=== PATIENT | male | born 1975 | race Caucasian/White ===

== ENCOUNTER 2025-04-09 19:49 | Emergency (ER) | payer SELFPAY ==
[~2025-04-09] VITALS: Ht 175.3 cm; Wt 90.0 kg
[2025-04-09 19:54] VITALS: O2SAT 99
[2025-04-09] MEDS: KETOROLAC 15MG/ML VIAL IM ONE (23:40)
[2025-04-09 23:57] LABS: CLARITY URINE CLOUDY (CLEAR); COLOR URINE ORANGE (YELLOW); GLUCOSE URINE NEGATIVE (NEGATIVE); KETONES URINE TRACE (NEGATIVE); LEUKOCYTE ESTERASE URINE 1+ (NEGATIVE); NITRITE URINE NEGATIVE (NEGATIVE); OCCULT BLOOD URINE 3+ (NEGATIVE); PH URINE 5.5 (4.5-8.0); PROTEIN URINE 2+ (NEGATIVE); SPECIFIC GRAVITY URINE 1.038 (1.005-1.030); UROBILINOGEN URINE 1.0 E.U./dL (0.2-1.0)
[2025-04-10] MEDS ORDERED: NAPR-1176 MT (00:32)
[2025-04-10] MEDS ORDERED: TAMS-54 MT (00:32)
[2025-04-10 01:05] LABS: BACTERIA URINE NONE SEEN; RBC URINE 50-100 /hpf (0-2); SQUAMOUS EPITHELIAL CELL URINE NONE SEEN /lpf (RARE/1+)
[2025-04-10 01:12] LABS: BASOPHILS % 0.3 % (0.0-2.0); EOSINOPHILS % 1.2 % (0.0-5.0); HEMATOCRIT. 42.7 % (42.0-52.0); HEMOGLOBIN. 14.3 g/dL (14.0-18.0); LYMPHOCYTES % 22.4 % (20.0-50.0); MEAN PLATELET VOLUME 8.0 fl (7.4-10.4); MONOCYTES % 9.2 % (2.0-8.0); NEUTROPHILS % 66.9 % (40.0-76.0); PLATELET 206 x1000/uL (130-400); RED BLOOD CELL COUNT 4.77 mill/uL (4.7-6.1); RED CELL DISTRIBUTION WIDTH 13.4 % (11.6-14.6)
[2025-04-10 01:13] LABS: CREATININE 1.0 mg/dL (0.6-1.3); UREA NITROGEN BLOOD 16 mg/dL (9-23)
[2025-04-10] MEDS ORDERED: CEFP100T8 MT (01:30)
[2025-04-10 01:52] VITALS: BP 135/68; PULSE 73; RESP 16; TEMP 36.8; O2SAT 100
== END 2025-04-10 01:55 | disposition home or self-care (01) ==
LOC: ER 19:49
DX: N20.2 Calculus of kidney with calculus of ureter (principal); Z79.1 Long term (current) use of non-steroidal anti-inflammatories (NSAID); Z87.442 Personal history of urinary calculi
CPT/HCPCS: 99285; 74176; 81003; 96372; 80048; 85025; 36415; J1885